=== PATIENT | male | born 1960 | race Caucasian/White ===

== ENCOUNTER 2024-11-16 16:11 | Emergency (ER) | payer OTHER ==
[2024-11-16 17:36] VITALS: BP 102/60; PULSE 84; RESP 16; TEMP 99; BMI 21.2
[2024-11-16] MEDS ORDERED: ACETAMINOPHEN 500 MG TABLET (FP) ONE (17:54)
[2024-11-16] MEDS: ACETAMINOPHEN 500 MG TABLET (FP) PO ONE (18:02)
== END 2024-11-16 19:37 | disposition home or self-care (01) ==
LOC: FER 16:11
DX: R51.9 Headache, unspecified (principal); R30.0 Dysuria; R53.1 Weakness; R53.83 Other fatigue; R35.0 Frequency of micturition; R39.15 Urgency of urination; R30.9 Painful micturition, unspecified; R29.898 Other symptoms and signs involving the musculoskeletal system
CPT/HCPCS: 81003; 81015; 87086; 99283-25